=== PATIENT | male | born 1985 | race Caucasian/White ===

== ENCOUNTER 2016-12-23 17:12 | Observation (INO) | payer BC ==
--- NOTE | 2016-12-23 18:31 | PDOC ---
History of Present Illness - General History Source: Patient Exam Limitations: No Limitations - History of Present Illness Initial Comments: 12/23/16 18:34 Patient is a 31 year old male with a significant past medical history of childhood asthma who presents to the ED with fever, chills, nausea, vomiting and upper abdominal aches since this morning. Patient states that he woke up this morning feeling upper abdominal aches. Patient reports 6 episodes of vomiting today. Patient reports sick contact with niece who is sick. He denies any abdominal pain, SOB, chest pain, diarrhea or constipation. <Dorene Maxwell - Last Filed: 12/23/16 18:34> <Modesta Feldre - Last Filed: 12/23/16 21:42> - General Chief Complaint: Nausea/Vomiting Stated Complaint: VOMITING Time Seen by Provider: 12/23/16 18:09 Past History <Dorene Maxwell - Last Filed: 12/23/16 18:34> - Past Medical History Asthma: Yes - Psycho/Social/Smoking Cessation Hx Suicidal Ideation: No Smoking History: Never smoked Information on smoking cessation initiated: No Hx Alcohol Use: No Drug/Substance Use Hx: No Substance Use Type: None <Modesta Felder - Last Filed: 12/23/16 21:42> - Past Medical History Allergies/Adverse Reactions: Allergies Allergy/AdvReac Type Severity Reaction Status Date / Time No Known Allergies Allergy Verified 12/23/16 17:24 Home Medications: Ambulatory Orders NK [No Known Home Medication] 12/23/16 Review of Systems - Review of Systems Able to Perform ROS?: Yes Comments:: 12/23/16 18:35 CONSTITUTIONAL: Present: fever, chills, body aches Absent: diaphoresis, generalized weakness, malaise, loss of appetite HEENT: Absent: rhinorrhea, nasal congestion, throat pain, throat swelling, difficulty swallowing, mouth swelling, ear pain, eye pain, visual Changes CARDIOVASCULAR: Absent: chest pain, syncope, palpitations, irregular heart rate, lightheadedness , peripheral edema RESPIRATORY: Absent: cough, shortness of breath, dyspnea with exertion, orthopnea, wheezing, stridor, hemoptysis GASTROINTESTINAL: Present: abdominal aches, nausea, vomiting. Absent: abdominal distension, diarrhea, constipation, melena, hematochezia GENITOURINARY: Absent: dysuria, frequency, urgency, hesitancy, hematuria, flank pain, genital pain MUSCULOSKELETAL: Absent: myalgia, arthralgia, joint swelling SKIN: Absent: rash, itching, pallor HEMATOLOGIC/IMMUNOLOGIC: Absent: easy bleeding, easy bruising, lymphadenopathy, frequent infections ENDOCRINE: Absent: unexplained weight gain, unexplained weight loss, heat intolerance, cold intolerance NEUROLOGIC: Absent: headache, focal weakness or paresthesias, dizziness, unsteady gait, seizure, mental status changes, bladder or bowel incontinence PSYCHIATRIC: Absent: anxiety, depression, suicidal or homicidal ideation, hallucinations. <Dorene Maxwell - Last Filed: 12/23/16 18:34> *Physical Exam - Vital Signs Last Vital Signs Temp Pulse Resp BP Pulse Ox 98.9 F 121 H 19 126/57 97 12/23/16 17:23 12/23/16 17:23 12/23/16 17:23 12/23/16 17:23 12/23/16 17:23 - Physical Exam Comments: 12/23/16 18:36 GENERAL: Well developed, well nourished. Awake and alert. No acute distress. HEENT: Normocephalic, atraumatic. PERRLA, EOMI. No conjunctival pallor. Sclera are non- icteric. Moist mucous membranes. Oropharynx is clear. NECK: Supple. Full ROM. No JVD. Carotid pulses 2+ and symmetric, without bruits. No thyromegaly. No lymphadenopathy. CARDIOVASCULAR: Regular rate and rhythm. No murmurs, rubs, or gallops. Distal pulses are 2+ and symmetric. PULMONARY: No evidence of respiratory distress. Lungs clear to auscultation bilaterally. No wheezing, rales or rhonchi. ABDOMINAL: Soft. Non-tender. Non-distended. No rebound or guarding. No organomegaly. Normoactive bowel sounds. MUSCULOSKELETAL Normal range of motion at all joints. No bony deformities or tenderness. No CVA tenderness. EXTREMITIES: No cyanosis. No clubbing. No edema. No calf tenderness. SKIN: Warm and dry. Normal capillary refill. No rashes. No jaundice. NEUROLOGICAL: Alert, awake, appropriate. Cranial nerves 2-12 intact. No deficits to light touch and temperature in face, upper extremities and lower extremities. No motor deficits in the in face, upper extremities and lower extremities. Normoreflexic in the upper and lower extremities. Normal speech. Toes are down-going bilaterally. Gait is normal without ataxia. PSYCHIATRIC: Cooperative. Good eye contact. Appropriate mood and affect. <Dorene Maxwell - Last Filed: 12/23/16 18:34> - Vital Signs Last Vital Signs Temp Pulse Resp BP Pulse Ox 98.9 F 121 H 19 126/57 97 12/23/16 17:23 12/23/16 17:23 12/23/16 17:23 12/23/16 17:23 12/23/16 17:23 <Modesta Felder - Last Filed: 12/23/16 21:42> ED Treatment Course - LABORATORY CBC & Chemistry Diagram: 12/23/16 18:47 12/23/16 18:47 <Modesta Felder - Last Filed: 12/23/16 21:42> Medical Decision Making - Medical Decision Making 12/23/16 21:39 31-year-old male presents with 1 day of nausea, vomiting, epigastric pain, fever and chills. Past surgical history none Past medical history childhood asthma Patient is febrile 100.7, tachycardic at 121, presents with body aches -Patient denied upper respiratory infection, cough, diarrhea Last reviewed 80% neutrophils, CBC, slightly elevated. Chemistries show a total bili elevated to 1.9, elevated LFTs Ultrasound shows gallbladder sludge Impression early cholecystitis Patient in still has complaints of general malaise, nausea, body aches and vomiting Plan admission for IV antibiotics, IV antiemetics, IV fluids, GI consultation- <Modesta Felder - Last Filed: 12/23/16 21:42> *DC/Admit/Observation/Transfer - Attestations Scribe Attestion: 12/23/16 18:37 Documentation prepared by LAMIN Eastman, acting as rn medical surgical for Modesta Felder MD. <Dorene Maxwell - Last Filed: 12/23/16 18:34> - Discharge Dispostion Admit: Yes <Modesta Felder - Last Filed: 12/23/16 21:42> Diagnosis at time of Disposition: Cholecystitis Fever Qualifiers: Fever type: unspecified Qualified Code(s): R50.9 - Fever, unspecified Vomiting Qualifiers: Vomiting type: unspecified Vomiting Intractability: intractable Nausea presence : with nausea Qualified Code(s): R11.2 - Nausea with vomiting, unspecified - Referrals Referrals: Isaiah Glover [Primary Care Provider] -
[2016-12-23] MEDS ORDERED: ONDANSETRON 4 MG/2 ML VIAL IVPUSH ONE (18:35)
[2016-12-23] MEDS ORDERED: SODIUM CHLORIDE 1,000 ML IV STA (18:39)
[2016-12-23] MEDS ORDERED: ONDANSETRON 4 MG/2 ML VIAL ONE (18:43)
[2016-12-23] MEDS ORDERED: ACETAMINOPHEN 325 MG TABLET (FP) ONE ×2 (18:43→23:05)
[2016-12-23] MEDS ORDERED: ACETAMINOPHEN 325 MG TABLET (FP) PO ONE (18:45)
[2016-12-23 18:53] LABS: BASOPHIL 0.1 % (0-2.0); EOSINOPHIL 0.1 % (0-4.5); MCHC 33.9 g/dl (32.0-35.9); MEAN CELL VOLUME 82.6 fl (80-96); MEAN PLT VOLUME 7.6 fl (7.5-11.1); PLATELET COUNT 235 K/MM3 (134-434); RDW 13.7 % (11.9-15.9); WHITE BLOOD COUNT 10.9 K/mm3 (4.0-10.0)
[2016-12-23 19:19] LABS: ALBUMIN 3.9 g/dl (3.4-5.0); ANION GAP 11 (8-16); BILIRUBIN,TOTAL 1.9 mg/dL (0.2-1.0); CALCIUM 8.6 mg/dL (8.5-10.1); CO2 26 mmol/L (21-32); COCKROFT - GAULT 174.82; CREATININE 0.8 mg/dL (0.7-1.3); GLUCOSE,RANDOM 96 mg/dL (74-106); SGOT/AST 46 U/L (15-37); SGPT/ALT 115 U/L (12-78); TOT PROT 7.4 g/dl (6.4-8.2)
[2016-12-23 19:20] LABS: ALK PHOS 78 U/L (45-117)
[2016-12-23] MEDS ORDERED: PIPERACILLIN/TAZOB 3.375 GM 3.375 GM in DEXTROSE 5%-WATER - 50 ML IVPB ONE (21:44)
[2016-12-23] MEDS ORDERED: PIPERACILLIN/TAZOB 3.375 GM 50 ML IVPB ONE (21:54)
[2016-12-23 23:54] VITALS: BMI 31.9
[2016-12-24] MEDS ORDERED: HYDROmorphone HCL CARPU-JECT 1 MG/1 ML DISP.SYRIN IVPB PRN (00:33)
[2016-12-24] MEDS: SODIUM CHLORIDE 1,000 ML IV SCH ×2 (00:52→18:42)
[2016-12-24 08:30] LABS: BASOPHIL 0.1 % (0-2.0); EOSINOPHIL 0.1 % (0-4.5); MCH 28.6 pg (25.7-33.7); MCHC 34.2 g/dl (32.0-35.9); MEAN CELL VOLUME 83.7 fl (80-96); MEAN PLT VOLUME 7.7 fl (7.5-11.1); NEUTROPHILS 71.7 % (42.8-82.8); PLATELET COUNT 184 K/MM3 (134-434); RDW 13.8 % (11.9-15.9); WHITE BLOOD COUNT 6.4 K/mm3 (4.0-10.0)
[2016-12-24 09:11] LABS: ALBUMIN 3.4 g/dl (3.4-5.0); ALK PHOS 71 U/L (45-117); ANION GAP 9 (8-16); BILIRUBIN,TOTAL 2.3 mg/dL (0.2-1.0); CALCIUM 8.4 mg/dL (8.5-10.1); CO2 29 mmol/L (21-32); COCKROFT - GAULT 211.64; CREATININE 0.8 mg/dL (0.7-1.3); GLUCOSE,RANDOM 82 mg/dL (74-106); SGOT/AST 44 U/L (15-37); SGPT/ALT 104 U/L (12-78); TOT PROT 6.6 g/dl (6.4-8.2)
--- NOTE | 2016-12-24 09:58 | CONSULT ---
Consult Consult Specialty:: Surgery Reason for Consultation:: r/o acute cholecystitis - History of Present Illness History of Present Illness: Patient is a 31 year old male with a significant past medical history of childhood asthma who presents to the ED with fever, chills, nausea, vomiting and upper abdominal aches since this morning. Patient states that he woke up this morning feeling upper abdominal aches. Patient reports 6 episodes.Patient reports sick contact with niece who is sick. US in ED showed GB sludge with no wall thickening. - History Source History Provided By: Patient Limitations to Obtaining History: No Limitations - Past Medical History Pulmonary: Yes: Asthma - Alcohol/Substance Use Hx Alcohol Use: No - Smoking History Smoking history: Never smoked Home Medications - Allergies Allergies/Adverse Reactions: Allergies Allergy/AdvReac Type Severity Reaction Status Date / Time No Known Allergies Allergy Verified 12/23/16 17:24 - Home Medications Home Medications: Ambulatory Orders NK [No Known Home Medication] 12/23/16 Review of Systems - Review of Systems Constitutional: reports: Fever HENT: reports: No Symptoms Neck: reports: No Symptoms Cardiovascular: reports: No Symptoms Respiratory: reports: No Symptoms Gastrointestinal: reports: Abdominal Pain (epigastric region) Genitourinary: reports: No Symptoms Physical Exam Vital Signs: Vital Signs Temperature 99.0 F 12/24/16 06:07 Pulse Rate 100 H 12/24/16 06:07 Respiratory Rate 18 12/24/16 06:07 Blood Pressure 133/62 12/24/16 06:07 O2 Sat by Pulse Oximetry (%) 99 12/23/16 23:48 Constitutional: Yes: Obese Eyes: Yes: Conjunctiva Clear HENT: Yes: Normocephalic Neck: Yes: Supple Cardiovascular: Yes: Regular Rate and Rhythm Respiratory: Yes: Regular, CTA Bilaterally Gastrointestinal: Yes: Soft, Abdomen, Obese, Tenderness (mild at epigastric region) Labs: CBC, BMP 12/24/16 07:45 12/24/16 07:45 Imaging - Results Ultrasound: Report Reviewed, Image Reviewed Assessment/Plan Abdominal pain with US findings of diana sludge, doubt acute cholecystitis Recommend: HIDA scan - reported as negative for cystic duct obstruction No surgical intervention necessary at this time. GI evaluation -abnormal LFT'S, fatty liver Advised low fat diet, informed of possibility of developing gallstones and/or biliary symptoms in the future.
[2016-12-24] MEDS ORDERED: CEFTRIAXONE 50 ML IVPB SCH (10:00)
--- NOTE | 2016-12-24 12:28 | HP ---
Admitting History and Physical - Primary Care Physician PCP: Alexandra Galvez - Admission History of Present Illness: Patient is a 31 year old male with a significant past medical history of childhood asthma who presents to the ED with fever, chills, nausea, vomiting and upper abdominal aches since this morning. Patient states that he woke up this morning feeling upper abdominal aches. Patient reports 6 episodes of vomiting today. Patient reports sick contact with niece who is sick. - Past Medical History Pulmonary: Yes: Asthma - Smoking History Smoking history: Never smoked - Alcohol/Substance Use Hx Alcohol Use: No Home Medications - Allergies Allergies/Adverse Reactions: Allergies Allergy/AdvReac Type Severity Reaction Status Date / Time No Known Allergies Allergy Verified 12/23/16 17:24 - Home Medications Home Medications: Ambulatory Orders NK [No Known Home Medication] 12/23/16 Family Disease History - Family Disease History Family History: Denies Physical Examination Vital Signs: Vital Signs Temperature 99.0 F 12/24/16 06:07 Pulse Rate 100 H 12/24/16 06:07 Respiratory Rate 18 12/24/16 09:00 Blood Pressure 133/62 12/24/16 06:07 O2 Sat by Pulse Oximetry (%) 95 12/24/16 09:00 Constitutional: Yes: No Distress HENT: Yes: Atraumatic Neck: Yes: Supple Cardiovascular: Yes: Regular Rate and Rhythm Respiratory: Yes: CTA Bilaterally Gastrointestinal: Yes: Normal Bowel Sounds, Tenderness (mild ruq) Neurological: Yes: Alert, Oriented Problem List - Problems (1) Cholecystitis Assessment/Plan: will do hida surgery gi on board elevated lfts Code(s): K81.9 - CHOLECYSTITIS, UNSPECIFIED (2) Fever Assessment/Plan: possible cholangitis will start abx send cxs id consult Code(s): R50.9 - FEVER, UNSPECIFIED Qualifiers: Fever type: unspecified Qualified Code(s): R50.9 - Fever, unspecified (3) Vomiting Assessment/Plan: prn zofran Code(s): R11.10 - VOMITING, UNSPECIFIED Qualifiers: Vomiting type: unspecified Vomiting Intractability: intractable Nausea presence: with nausea Qualified Code(s): R11.2 - Nausea with vomiting , unspecified (4) LFTs abnormal Assessment/Plan: due to number 1 Code(s): R79.89 - OTHER SPECIFIED ABNORMAL FINDINGS OF BLOOD CHEMISTRY Assessment/Plan Laboratory Tests 12/23/16 12/23/16 12/24/16 18:47 18:47 07:45 WBC 10.9 H 6.4 D RBC 5.48 4.88 Hgb 15.4 14.0 Hct 45.3 40.8 MCV 82.6 83.7 MCHC 33.9 34.2 RDW 13.7 13.8 Plt Count 235 184 D MPV 7.6 7.7 Neutrophils % 88.0 H 71.7 Lymphocytes % 5.8 L 17.9 D Monocytes % 6.0 10.2 Eosinophils % 0.1 0.1 Basophils % 0.1 0.1 Sodium 140 Potassium 3.8 Chloride 103 Carbon Dioxide 26 Anion Gap 11 BUN 9 Creatinine 0.8 Creat Clearance w eGFR > 60 Random Glucose 96 Calcium 8.6 Ferritin Total Bilirubin 1.9 H Direct Bilirubin AST 46 H ALT 115 H Alkaline Phosphatase 78 Total Protein 7.4 Albumin 3.9 Lipase 108 Opiates Screen Methadone Screen Barbiturate Screen Phencyclidine Screen Ur Amphetamines Screen MDMA (Ecstasy) Screen Benzodiazepines Screen Cocaine Screen U Marijuana (THC) Screen 12/24/16 12/25/16 12/25/16 07:45 06:00 08:22 WBC RBC Hgb Hct MCV MCHC RDW Plt Count MPV Neutrophils % Lymphocytes % Monocytes % Eosinophils % Basophils % Sodium 141 Potassium 3.8 Chloride 103 Carbon Dioxide 29 Anion Gap 9 BUN 9 Creatinine 0.8 Creat Clearance w eGFR > 60 Random Glucose 82 Calcium 8.4 L Ferritin 205.032 Total Bilirubin 2.3 H D Direct Bilirubin AST 44 H ALT 104 H Alkaline Phosphatase 71 Total Protein 6.6 Albumin 3.4 Lipase Opiates Screen Negative Methadone Screen Negative Barbiturate Screen Negative Phencyclidine Screen Negative Ur Amphetamines Screen Negative MDMA (Ecstasy) Screen Negative Benzodiazepines Screen Negative Cocaine Screen Negative U Marijuana (THC) Screen Negative 12/25/16 14:40 WBC RBC Hgb Hct MCV MCHC RDW Plt Count MPV Neutrophils % Lymphocytes % Monocytes % Eosinophils % Basophils % Sodium Potassium Chloride Carbon Dioxide Anion Gap BUN Creatinine Creat Clearance w eGFR Random Glucose Calcium Ferritin Total Bilirubin 1.1 H D Direct Bilirubin 0.3 H AST 35 D ALT 91 H Alkaline Phosphatase 64 Total Protein 7.0 Albumin 3.6 Lipase Opiates Screen Methadone Screen Barbiturate Screen Phencyclidine Screen Ur Amphetamines Screen MDMA (Ecstasy) Screen Benzodiazepines Screen Cocaine Screen U Marijuana (THC) Screen Active Medications Generic Name Dose Route Start Last Admin Trade Name Freq PRN Reason Stop Dose Admin Hydromorphone HCl 1 mg 12/24/16 00:33 12/24/16 00:56 Dilaudid Injection - IVPB 1 mg Q3H PRN Administration PAIN Sodium Chloride 1,000 mls @ 75 mls/hr 12/24/16 00:45 12/25/16 06:27 Normal Saline - IV 75 mls/hr ASDIR KEREN Administration
--- NOTE | 2016-12-24 19:13 | CONSULT ---
Consult Consult Specialty:: infectious diseases Referred by:: vomiting,nausea Reason for Consultation:: r/o kaylyn,gastroenteritits - History of Present Illness Chief Complaint: vomiting History of Present Illness: Patient is a 31 year old male with a significant past medical history of childhood asthma who presents to the ED with fever, chills, nausea, vomiting and upper abdominal aches since this morning. Patient states that he woke up this morning feeling upper abdominal aches. Patient reports 6 episodes of vomiting today. Patient reports sick contact with niece who is sick. patient denies dirrhoea and was not able to keep anything in also patient c/o of pain in the rt upper quadrant and was worked up for choleycstitis which turned out to be negative currently patient doing well able to keep things in surgery has evaluated the patient - History Source History Provided By: Patient Limitations to Obtaining History: No Limitations - Past Medical History Pulmonary: Yes: Asthma - Alcohol/Substance Use Hx Alcohol Use: No - Smoking History Smoking history: Never smoked Home Medications - Allergies Allergies/Adverse Reactions: Allergies Allergy/AdvReac Type Severity Reaction Status Date / Time No Known Allergies Allergy Verified 12/23/16 17:24 - Home Medications Home Medications: Ambulatory Orders NK [No Known Home Medication] 12/23/16 Review of Systems - Review of Systems Constitutional: reports: Fever Eyes: reports: No Symptoms HENT: reports: No Symptoms Neck: reports: No Symptoms Cardiovascular: reports: No Symptoms Respiratory: reports: No Symptoms Gastrointestinal: reports: Abdominal Pain, Nausea, Vomiting Genitourinary: reports: No Symptoms Musculoskeletal: reports: No Symptoms Integumentary: reports: No Symptoms Neurological: reports: No Symptoms Endocrine: reports: No Symptoms Hematology/Lymphatic: reports: No Symptoms Psychiatric: reports: No Symptoms Physical Exam Vital Signs: Vital Signs Temperature 99.2 F 12/24/16 14:12 Pulse Rate 86 12/24/16 14:12 Respiratory Rate 20 12/24/16 14:12 Blood Pressure 129/54 12/24/16 14:12 O2 Sat by Pulse Oximetry (%) 95 12/24/16 09:00 Constitutional: Yes: Well Nourished, No Distress, Calm Eyes: Yes: Conjunctiva Clear HENT: Yes: Atraumatic, Normocephalic Neck: Yes: Supple, Trachea Midline Cardiovascular: Yes: Regular Rate and Rhythm Respiratory: Yes: Regular, CTA Bilaterally Gastrointestinal: Yes: Normal Bowel Sounds, Soft Musculoskeletal: Yes: WNL Extremities: Yes: WNL Integumentary: Yes: WNL Neurological: Yes: Alert, Oriented Psychiatric: Yes: Alert, Oriented Imaging - Results Chest X-ray: Report Reviewed, Image Reviewed Ultrasound: Report Reviewed, Image Reviewed Assessment/Plan patient seen looks like patient has viral gastroeneteritits has some sludge in gall bladder a/p viral gastroenteritis abn lft nausea vomiting plan will not start any abx continue current mgmt
--- NOTE | 2016-12-24 19:44 | CON.GI ---
Consult Consult Specialty:: GI Referred by:: Dr Galvez Reason for Consultation:: Ijncreased LFT's - History of Present Illness Chief Complaint: Nausea and vomiting History of Present Illness: 31 M states he was in his usual state of health when he developed diffuse muscle aches and pains, nausea and vomiting. He states no significant pain. He states he was babysitting his sick niece on the day prior to illness. He has a h/o asthma but is doing well on no meds - History Source History Provided By: Patient - Past Medical History Pulmonary: Yes: Asthma - Alcohol/Substance Use Hx Alcohol Use: No - Smoking History Smoking history: Never smoked Home Medications - Allergies Allergies/Adverse Reactions: Allergies Allergy/AdvReac Type Severity Reaction Status Date / Time No Known Allergies Allergy Verified 12/23/16 17:24 - Home Medications Home Medications: Ambulatory Orders NK [No Known Home Medication] 12/23/16 Physical Exam-GI Vital Signs: Vital Signs Temperature 99.2 F 12/24/16 14:12 Pulse Rate 86 12/24/16 14:12 Respiratory Rate 20 12/24/16 14:12 Blood Pressure 129/54 12/24/16 14:12 O2 Sat by Pulse Oximetry (%) 95 12/24/16 09:00 Constitutional: Yes: Well Nourished, No Distress Neck: Yes: Supple Cardiovascular: Yes: Regular Rate and Rhythm Respiratory: Yes: CTA Bilaterally Gastrointestinal Inspection: Yes: WNL ...Palpate: Yes: Soft. No: Tenderness Integumentary: Yes: Tattoos Neurological: Yes: WNL Psychiatric: Yes: WNL Labs: CBC, BMP 12/24/16 07:45 12/24/16 07:45 Hepatic Panel Total Bilirubin 2.3 mg/dL (0.2-1.0) H D 12/24/16 07:45 AST 44 U/L (15-37) H 12/24/16 07:45 ALT 104 U/L (12-78) H 12/24/16 07:45 Alkaline Phosphatase 71 U/L (45-117) 12/24/16 07:45 Albumin 3.4 g/dl (3.4-5.0) 12/24/16 07:45 Abnormal Lab Results 12/24/16 07:45 Calcium 8.4 L Total Bilirubin 2.3 H D AST 44 H ALT 104 H Imaging - Results Ultrasound: Report Reviewed (gallbladder sludge. Hepatomegaly with markedly dense echotexture. Normal ducts) Other: Report Reviewed (HIDA scan. Rapid filling of gallbladder and normal biliary to bowel transit.) Assessment/Plan 31 M with no signif PMH/PSH now with hepatomegaly, an echodense liver and abnormal LFTs except for normal alk phos. There may be an acute process but need to R/O underlying chronic liver disease. No evidence of cholecystitis. Denies drug/ETOH use, denies recent tattoos, denies OTC med use Rec: R/O acute HCV/HBV-will check serologies R/O Steve's disease-check ceruplasmin and urinary Cu R/O autoimmune hep: Anti-smooth muscle Ab Not PBC with normal alk phos Possible viral syndrome. Follow LFTs UTOX Agree with holding AbRx at this time
[2016-12-25] MEDS: SODIUM CHLORIDE 1,000 ML IV SCH (06:27)
[2016-12-25 11:07] LABS: URINE MARIJUANA THC NEGATIVE ng/ml (CUTOFF=50)
--- NOTE | 2016-12-25 11:52 | PN ---
Progress Note, Physician History of Present Illness: stable feels much better no vomiting now - Current Medication List Current Medications: Active Medications Hydromorphone HCl (Dilaudid Injection -) 1 mg IVPB Q3H PRN PRN Reason: PAIN Last Admin: 12/24/16 00:56 Dose: 1 mg Sodium Chloride (Normal Saline -) 1,000 mls @ 75 mls/hr IV ASDIR KEREN Last Admin: 12/25/16 06:27 Dose: 75 mls/hr - Objective Vital Signs: Vital Signs Temperature 99.7 F H 12/25/16 06:06 Pulse Rate 92 H 12/25/16 06:06 Respiratory Rate 20 12/25/16 06:06 Blood Pressure 125/74 12/25/16 06:06 O2 Sat by Pulse Oximetry (%) 96 12/24/16 20:31 Constitutional: Yes: No Distress, Calm Cardiovascular: Yes: Regular Rate and Rhythm Respiratory: Yes: Regular, CTA Bilaterally Musculoskeletal: Yes: WNL Extremities: Yes: WNL Neurological: Yes: Alert, Oriented Psychiatric: Yes: Alert, Oriented Assessment/Plan patient seen looks like patient has viral gastroeneteritits has some sludge in gall bladder a/p viral gastroenteritis abn lft nausea vomiting plan will not start any abx continue current mgmt gastro on case
[2016-12-25 15:28] LABS: ALBUMIN 3.6 g/dl (3.4-5.0); BILIRUBIN,DIRECT 0.3 mg/dL (0.0-0.2); BILIRUBIN,TOTAL 1.1 mg/dL (0.2-1.0)
--- NOTE | 2016-12-25 18:55 | PN ---
GI Progress Note Subjective: Patient feels well. LFT's trending down nicely - Objective Vital Signs: Vital Signs Temperature 98.4 F 12/25/16 13:56 Pulse Rate 83 12/25/16 13:56 Respiratory Rate 17 12/25/16 13:56 Blood Pressure 126/74 12/25/16 10:00 O2 Sat by Pulse Oximetry (%) 97 12/25/16 09:00 Constitutional: Well Nourished, No Distress HENT: Yes: Normocephalic Cardiovascular: Yes: Regular Rate and Rhythm Respiratory: Yes: CTA Bilaterally Labs: CBC, BMP 12/24/16 07:45 12/24/16 07:45 Hepatic Panel Total Bilirubin 1.1 mg/dL (0.2-1.0) H D 12/25/16 14:40 Direct Bilirubin 0.3 mg/dL (0.0-0.2) H 12/25/16 14:40 AST 35 U/L (15-37) D 12/25/16 14:40 ALT 91 U/L (12-78) H 12/25/16 14:40 Alkaline Phosphatase 64 U/L (45-117) 12/25/16 14:40 Albumin 3.6 g/dl (3.4-5.0) 12/25/16 14:40 Assessment/Plan Patient doing well Serologies pending My concern is the appearance of the liver on U/-enlarged and very echogenic, suggesting chronic disease Will see as opt and review lab results when available. Patient understands and will f/u
--- NOTE | 2016-12-25 19:13 | DS ---
Physical Examination Vital Signs: Vital Signs Temperature 98.4 F 12/25/16 13:56 Pulse Rate 83 12/25/16 13:56 Respiratory Rate 17 12/25/16 13:56 Blood Pressure 126/74 12/25/16 10:00 O2 Sat by Pulse Oximetry (%) 97 12/25/16 09:00 Constitutional: Yes: No Distress HENT: Yes: Atraumatic Neck: Yes: Supple Cardiovascular: Yes: Regular Rate and Rhythm Respiratory: Yes: CTA Bilaterally Gastrointestinal: Yes: Normal Bowel Sounds Extremities: Yes: WNL Neurological: Yes: Alert, Oriented Discharge Summary Reason For Visit: HYPERKALEMIA/ACUTE ON CHRONIC RENAL FAILURE Current Active Problems Cholecystitis (Acute) Fever (Acute) LFTs abnormal (Acute) Vomiting (Acute) - Instructions Diet, Activity, Other Instructions: see dr brown in 1 week Referrals: Isaiah Glover [Primary Care Provider] - - Home Medications Comprehensive Discharge Medication List: Ambulatory Orders NK [No Known Home Medication] 12/23/16 cleared by gi to be dc need to follow up gi 1 week stable
[2016-12-25 19:52] VITALS: BP 122/71; PULSE 79; TEMP 98.1
[2016-12-26 06:11] LABS: HEP B SURFACE AB Reactive (.)
== END 2016-12-25 20:42 | disposition home or self-care (01) ==
LOC: JER 17:12 → JERBED 21:42 → INTOOBSV 21:42 → UNDOADMOB 21:42 → JERBED 23:07 → UNDOADMIN 23:07 → JERBED 23:38 → J6S 23:38 → JERBED 12-24 09:00 → J6S 12-24 09:00
PROVIDERS: ADMIT Internal Medicine; ATTEND Internal Medicine
PROC: 3E03329 Introduction of Other Anti-infective into Peripheral Vein, Percutaneous Approach (ICD-10-PCS; principal; 2016-12-24)
PROC: 3E033GC Introduction of Other Therapeutic Substance into Peripheral Vein, Percutaneous Approach (ICD-10-PCS; 2016-12-24)
PROC: 3E0337Z Introduction of Electrolytic and Water Balance Substance into Peripheral Vein, Percutaneous Approach (ICD-10-PCS; 2016-12-24)
DX: K81.9 Cholecystitis, unspecified (principal); R50.9 Fever, unspecified; R11.2 Nausea with vomiting, unspecified; E66.9 Obesity, unspecified; Z68.31 Body mass index [BMI] 31.0-31.9, adult; R94.5 Abnormal results of liver function studies; K76.0 Fatty (change of) liver, not elsewhere classified; A08.4 Viral intestinal infection, unspecified
CPT/HCPCS: 36415; 76705-TC; 78226-TC; 80053; 80076; 80307; 82728; 83690; 85025; 86706; 87254; 87340; 87804; 99284-25; A9537; G0378